=== PATIENT | female | born 1970 | race Caucasian/White ===

== ENCOUNTER → 2019-09-25 | Outpatient (CLI) | payer OTHER, SELFPAY ==
[2019-08-02 11:45] VITALS: BMI 25.9
--- NOTE | 2019-09-25 15:38 | BI_ITS ---
MAMMOGRAPHY - BILATERAL SCREENING REASON FOR EXAM: Female, 49 years old. Routine annual screening examination. PERTINENT HISTORY: Grandmother with breast cancer. Aunt with breast cancer. TECHNIQUE: Digital bilateral breast jose rafael (3D mammographic acquisition) in the CC and MLO projections. 2-D mediolateral oblique (MLO) and craniocaudad (CC) views of both breasts were obtained. CAD: Full Field Digital Mammography with Computer Added Detection was performed. COMPARISON: Comparison is made with prior outside examination of August 13, 2016. FINDINGS: Breast Composition: The breasts are heterogeneously dense, which may obscure small masses. There are no dominant masses or suspicious calcifications. No other significant abnormalities are identified. There has been no significant change since the prior study. BI/SCREEN MAMM (CAD) W/JOSE RAFAEL BILAT IMPRESSION: Stable bilateral screening mammogram. Yearly follow-up mammogram recommended. (A) ASSESSMENT CATEGORY: BIRADS Category 1: Negative. A letter regarding these results will be sent to the patient by the facility within 30 days. Approximately 10% of breast cancers are not detected by mammography. A normal mammogram should not delay biopsy of a clinically suspicious abnormality. [id number] Electronically Signed: Jacob Richter, at 8:30 EDT , Service support ,
== END | disposition home or self-care (01) ==
PROVIDERS: PCP Family Medicine; Referring Provider Family Medicine; Visit Provider Family Medicine
DX: Z12.31 Encounter for screening mammogram for malignant neoplasm of breast (principal)
CPT/HCPCS: 77063; 77067

== ENCOUNTER → 2019-10-03 | Outpatient (CLI) | payer OTHER, SELFPAY ==
[2019-08-02 11:45] VITALS: BMI 25.9
[2019-10-03 13:10] LABS: Absolute Lymphocyte Count 1.45 X10^3/uL (0.83-4.51); Absolute Neutrophil Count 2.5 X10^3/uL (2.0-7.7); Basophil# 0.08 X10^3/uL; Basophil% 1.7 % (0-1); Eosinophil# 0.29 X10^3/uL; Eosinophils% 6.1 % (0-5); Lymphocyte # 1.45 X10^3/ul (4.0); Lymphocyte % 30.7 % (19-41); Mean Corp Hgb Conc 32.5 g/dL (32-36); Mean Corpuscular Hgb 30.2 pg (27.0-32.0); Mean Platelet Vol. 9.5 fl (6.2-12.0); Monocyte# 0.42 X10^3/uL; Monocyte% 8.9 % (0-10); NRBC Flagged by Analyzer 0 % (0-5); Neutrophil # 2.47 X10^3/uL (2.7-7.7); Neutrophil % 52.4 % (47-70); Platelet Count 255 K/mm3 (150-450); RBC Distribution Width CV 12.7 % (11.6-14.6); White Blood Count 4.7 K/mm3 (4.4-11.0)
[2019-10-03 13:16] LABS: Thyroid Stim Hormone (TSH) 1.19 uIU/mL (0.358-3.74)
== END | disposition home or self-care (01) ==
LOC: LAB 11:01 → LABSPEC 13:41
PROVIDERS: PCP Family Medicine; Referring Provider Family Medicine; Visit Provider Family Medicine
DX: K21.9 Gastro-esophageal reflux disease without esophagitis (principal); R53.83 Other fatigue
CPT/HCPCS: 36415; 84443; 85025

== ENCOUNTER → 2020-01-25 | Outpatient (CLI) | payer OTHER, SELFPAY ==
[2019-08-02 11:45] VITALS: BMI 25.9
[2020-01-25 14:05] LABS: Erythrocyte Sedimentation Rate 2 mm/hr (0-30)
[2020-01-25 14:07] LABS: Hematocrit 39.7 % (37-47); Mean Corp Hgb Conc 32.7 g/dL (32-36); Mean Corpuscular Hgb 30.9 pg (27.0-32.0); Mean Corpuscular Volume 94.3 fL (81-99); Mean Platelet Vol. 9.3 fl (6.2-12.0); Platelet Count 296 K/mm3 (150-450); Red Blood Count 4.21 M/mm3 (4.2-5.4); White Blood Count 5.3 K/mm3 (4.4-11.0)
[2020-01-25 14:25] LABS: Vitamin B12 378 pg/mL (211-911)
[2020-01-25 15:15] LABS: ALB/GLOB Ratio 1.3 RATIO (0.9-2.4); AST(SGOT) 27 U/L (15-37); Alanine Aminotransfer ALT/SGPT 43 U/L (13-56); Albumin, Serum 3.7 g/dL (3.2-5.0); Alkaline Phosphatase 59 U/L (45-117); Anion Gap 4 (5-15); BUN 21 mg/dL (7-18); BUN/Creat Ratio 19.3 RATIO (10-20); CRP < 2.90 mg/L (0.0-3.0); Calcium,Total 8.3 mg/dL (8.5-10.1); Chloride 110 mmol/L (98-107); Creatinine, Serum 1.09 mg/dL (0.55-1.02); EST Glomerular Filtration Rate 56 mL/min (>60); Est Glom Filt Rate - Afr Amer 68 mL/min (>60); Globulin 2.8 g/dL (2.2-4.2); Glucose 90 mg/dL (74-106); Potassium 3.8 mmol/L (3.5-5.1); Protein, Total 6.5 g/dL (6.4-8.2); Sodium Level 141 mmol/L (136-145); T4 Free Direct 1.03 ng/dL (0.76-1.46); Thyroid Stim Hormone (TSH) 0.68 uIU/mL (0.358-3.74)
== END | disposition home or self-care (01) ==
LOC: LAB 13:29
PROVIDERS: PCP Family Medicine; Visit Provider Family Medicine
DX: R53.83 Other fatigue (principal)
CPT/HCPCS: 36415; 80053; 82607; 84439; 84443; 85027; 85652; 86140

== ENCOUNTER → 2020-03-27 | Outpatient (CLI) | payer OTHER, SELFPAY ==
[2019-08-02 11:45] VITALS: BMI 25.9
--- NOTE | 2020-03-27 09:46 | MRI_ITS ---
STUDY: MRI RIGHT KNEE REASON FOR EXAM: Medial right knee pain, swelling and popping for 3 years, no specific injury. TECHNIQUE: Standardized fat and water weighted pulse sequences were obtained in all 3 orthogonal planes. COMPARISON: None. FINDINGS: There is a predominantly horizontal tear of the free margin/inferior articular surface of the posterior horn of the medial meniscus (proton-density sagittal images 26-33) with a small parameniscal cyst (T2 sagittal images 15, 16). There is peripheral subluxation of the medial meniscus. There is arthrosis of the medial femorotibial compartment with small marginal osteophytes, chondral thinning (T2 sagittal image 18) and slight subchondral bone edema of the medial tibial plateau. Normal medial collateral ligamentous complex (MCL). Normal distal semimembranosus, gracilis and semitendinosus tendons. Normal lateral meniscus. Normal hyaline cartilage of the lateral femorotibial compartment. Normal lateral femoral condyle and tibial plateau. Normal proximal tibiofibular articulation. Normal lateral collateral (fibular) ligament. Normal popliteus tendon. Normal biceps femoris tendon. Normal anterior cruciate ligament (ACL). Normal posterior cruciate ligament (PCL). Normal congruent patellofemoral articulation. Normal hyaline cartilage of the patellofemoral compartment. Normal medial and lateral patellar retinaculum. Normal visualized quadriceps tendon. Normal patellar tendon. Normal Hoffa''s fat pad. There is a small joint effusion. The soft tissues are unremarkable. The otherwise visualized osseous structures are unremarkable. MRI/Lower Ext Joint Only (Routine) IMPRESSION: Medial meniscal tear. Arthrosis of the medial femorotibial compartment. Small joint effusion. Electronically Signed: Hector Parker MD at 10:51 EDT Tel , Service support ,
== END | disposition home or self-care (01) ==
PROVIDERS: PCP Family Medicine; Referring Provider Family Medicine; Visit Provider Family Medicine
DX: M25.561 Pain in right knee (principal)
CPT/HCPCS: 73721

== ENCOUNTER 2020-04-01 09:09 | Emergency (ER) | payer OTHER, SELFPAY ==
[2019-08-02 11:45] VITALS: BMI 25.9
[2020-04-01 09:10] VITALS: BP 130/57; PULSE 75; RESP 16; TEMP 36.3; O2SAT 97; BMI 25.0
--- NOTE | 2020-04-01 09:23 | ED.VIS.GEN ---
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 She notes some soreness to the buttock. She notes she recently was diagnosed with a meniscal tear of the right knee and has been having some stiffness but since the fall the knee seems to be moving better. She also notes that she has a Fowler's cyst. She did not strike her head. She denies any low back pain. She notes some tenderness near the SI joint in the right piriformis area which has been a known issue in the past. She has been ambulatory. Past Medical History - Allergies and Home Meds Allergies/Adverse Reactions: Allergies No Known Allergies Allergy (Verified 04/01/20 09:21) Primary Care Physician: [facility] [NON-[facility]FF] - As Needed Prior records reviewed: Yes Past Medical History: - - Uncontributory Surgical History: noncontributory Smoking Status: Never smoker Drugs: None Review of Systems General: Denies: Chills, Fever, Sweats Eyes: Denies: Visual changes - bilaterally, Diplopia ENT: Denies: Rhinorrhea, Sore throat Cardiovascular: Denies: Chest pain, Palpitations Respiratory: Denies: Dyspnea, Cough, Dyspnea on exertion Gastrointestinal: Denies: Abdominal pain, Nausea, Vomiting, Diarrhea, Melena, Hematochezia Genitourinary: Denies: Dysuria, Hematuria, Frequency Musculoskeletal: Reports: Back pain - See history of present illness, Extremity Pain Skin: Denies: Rash, Wounds Neurological: Denies: Headache, Weakness, Numbness Physical Exam Vital Signs/Narrative: Vital Signs Temp Pulse Resp BP Pulse Ox 04/01/20 09:10 97.3 F L 75 16 130/57 H 97 Inital Vital Signs reviewed: Yes General: Well nourished, Well developed, No Acute Distress Head: Normocephalic, Atraumatic Eyes: Perrl, EOMI ENT: Moist mucous membranes, No rhinorrhea Neck: Supple, Nontender Cardiovascular: Regular rate, Regular rhythm, No murmurs Respiratory: No distress, CTA bilaterally, Chest nontender Abdomen: Soft, Nontender, Nondistended, Normal bowel sounds Back: Nontender - No midline or lumbar paraspinal tenderness., Normal Inspection Extremities: Nontender, No edema, Tenderness - Mild tenderness over the hip joints able to bear weight with good range of motion, - - Right knee shows no effusion. No palpable Fowler's cyst. No swelling noted. Full range of motion. No calf tenderness. Skin: Normal color, No rash Neurological: Alert, Oriented x3, Cranial nerves II-XII grossly intact, Normal Strength, Normal Sensation Psychological: Normal affect, Normal Mood Diagnostic/Tx/Re-eval - Medical Decision Making I believe this most likely a mechanical fall with contusions. I do not believe that x-rays are indicated. Patient will be discharged follow-up as needed ED Disposition - Plan for ED Patient: Disposition: Home or Assisted Living Diagnosis: Fall, Contusion, hip Instructions: ED Mechanical Fall, ED CONTUSION Hip Referrals: [facility] [NON-STAFF] - As Needed
== END 2020-04-01 09:35 | disposition home or self-care (01) ==
LOC: ED 09:29
PROVIDERS: Emergency Provider Emergency Medicine; PCP Family Medicine
DX: S70.01XA Contusion of right hip, initial encounter (principal); W01.0XXA Fall on same level from slipping, tripping and stumbling without subsequent striking against object, initial encounter; Y93.01 Activity, walking, marching and hiking; Y92.234 Operating room of hospital as the place of occurrence of the external cause; Y99.0 Civilian activity done for income or pay
CPT/HCPCS: 99282

== ENCOUNTER → 2020-04-24 | Outpatient (CLI) | payer OTHER, SELFPAY ==
--- NOTE | 2020-04-24 16:03 | RAD_ITS ---
STUDY: X-RAY - RIGHT KNEE REASON FOR EXAM: Right knee pain for about 5 years, no specific injury. TECHNIQUE: 4 view(s) of the knee. COMPARISON: MRI images 03/27/2020. FINDINGS: Normal visualized distal femur. Normal visualized proximal tibia and fibula. Normal proximal tibiofibular articulation. There are small marginal osteophytes and moderately severe joint space narrowing of the medial femorotibial compartment. Normal lateral femorotibial compartment. There are small marginal osteophytes without joint space narrowing of the patellofemoral articulation. There is a joint effusion. RAD/Knee 4 or More Views IMPRESSION: Arthrosis of the medial femorotibial compartment. Joint effusion. Electronically Signed: Hector Parker MD at 15:30 EDT Tel , Service support ,
== END | disposition home or self-care (01) ==
LOC: MTRAD 16:03
PROVIDERS: PCP Family Medicine; Referring Provider Orthopaedic Surgery; Visit Provider Orthopaedic Surgery
DX: M25.561 Pain in right knee (principal)
CPT/HCPCS: 73564

== ENCOUNTER → 2020-05-08 | Outpatient (CLI) | payer OTHER, SELFPAY | END | disposition home or self-care (01) | LOC: LABSPEC 05-09 09:51 | PROVIDERS: PCP Family Medicine; Visit Provider Physician Assistant | DX: R69 Illness, unspecified (principal) ==

== ENCOUNTER → 2020-05-08 | Outpatient (CLI) | payer OTHER, SELFPAY ==
[2020-05-08 17:59] LABS: Pathologist Comment May follow
[2020-05-08 18:42] LABS: Synovial Fld Mononuclear WBC % 91.1 %; Synovial Fld Polynuclear WBC # 0.017 10^3/uL; Synovial Fld Polynuclear WBC % 8.9 %
[2020-05-08 19:05] LABS: AUTO B FLUID DILUENT BKGD CT WBC <0.1 RBC <0.01 (W<.1,R<.01)
[2020-05-08 19:06] LABS: Appearance /Synovial Fluid Sl hazy (CLEAR); CRYSTALS, BODY FLUID See PATH REV; Color / Synovial Fluid Yellow (Pale Yellow); Source / Synovial Fluid NG; Source- Body Fluid SYNOVIAL
[2020-05-08 20:51] LABS: Body Fluid QC Type(s) BF3Q,BF4Q; Lymph 4 %; Neutrophil 14 % (0-25)
[2020-05-08 20:53] LABS: Monocyte /Synovial Fluid 82 %
[2020-05-09 13:18] LABS: Pathologist Review Reviewed
[2020-05-12 16:35] LABS: GLUCOSE, SYNOVIAL FLUID 82 mg/dL (.)
[2020-05-12 16:39] LABS: PROTEIN, SYNOVIAL FLUID 3.1 g/dL (.)
== END | disposition home or self-care (01) ==
LOC: LABSPEC 17:55
PROVIDERS: PCP Family Medicine; Visit Provider Physician Assistant
DX: M25.461 Effusion, right knee (principal)
CPT/HCPCS: 82945; 84157; 87070; 87075; 87205; 89050; 89051; 89060

== ENCOUNTER 2020-07-01 16:00 | Outpatient (RCR) | payer OTHER, SELFPAY ==
--- NOTE | 2020-05-05 17:03 | HP.PTEVAL_ITS ---
Patient's Visit Information MELISSA AARON is a 50 year old F referred to Physical Therapy by Dr. Gely Lopez DO with a diagnosis of R knee OA, torn medial meniscus. Date of Evaluation: 05/05/20 Physical Therapist: Riky Green, PT, ATC - Visit Plan Frequency: 2-3x /Week Duration: 4-6 Weeks Plan: Begin with aquatic PT consisting of R LE stretching and strengthening, and core stab ex's. Then consider transition to land PT if tolerated at that time. - Subjective Has been dealing w/ the R knee pain for about 4 years but has gotten worse over the last year after injuring her low back w/ a ruptured disc. Has been going to chiropractor and massage therapy since about . Believes that her back pain isn't going away from walking weird with her knee pain. Knee pain was worse last week but better this week. States it feels very stiff most of the time. Back and knee pain causes her to struggle while sleeping. Working makes the pain and swelling worse, rest makes it better. Returns to to have R knee drained and receive an injection. Pt has had an MRI and xray which revealsdegenerative changes - Pain Low back Pain Intensity (Out of 10): 0 Pain Intensity Range: 0, 5 R knee Pain Intensity (Out of 10): 1 Pain Intensity Range: 0, 5 - Objective Neuro: B LE sensation is WNL to light touch. B patellar reflex= 2/3. Palpation: Pain throughout R knee. Mild swelling noted. Girth at joint line: L knee 33 cm, R knee 35 cm. MMT: R knee ext 3+/5 and painful. All other LE's 5/5 throughout. ROM: L knee 0-130, R knee 0-2-114 - Goals Goal 1:: Decrease R knee pain x 50% to aid with sleep Goal Time Frame: 4-6 Weeks Goal 2:: Increase R knee strength x 1 grade to aid with IADL's Goal Time Frame: 4-6 Weeks Goal 3:: Increase R knee ROM x 10-15 degrees to aid with restoring a more normalized gait pattern Goal Time Frame: 4-6 Weeks Goal 4:: I with HEP Goal Time Frame: 4-6 Weeks - Rehabilitation Potential Physical Therapy Diagnosis: R knee pain, weakness, and limited ROM secondary to R knee degenerative changes Rehabilitation Potential: Good - Anticipated Interventions Patient/Client Instruction: Educate patient on: Condition, Plan of Care For the Purpose of:: To improve self management Therapeutic Exercise to Include: Strength training, Endurance training, Balance training, Flexibilty training, In an aquatic setting, Active ROM, Dynamic Lumbar Stabilization For the Purpose of:: To decrease pain, To increase ROM, To improve muscle p erformance and motor function Thank you for the opportunity to evaluate your patient. For Medicare and Medicare HMO plans, please review the plan of care and approve it. It will need to be FAXED BACK to us at [phone] for Medicare purposes. For Medicare only, by signing this I certify the plan of care. Please let me know if there are questions or concerns regarding this plan of care. Physician Signature: Date:
--- NOTE | 2020-05-26 16:34 | HP.PTREVAL ---
Dr. Gely Lopez, DO, It has been my pleasure to treat MELISSA AARON over the last 9 visits for R knee OA, torn medial meniscus. Please see the progress note below for an update on the physical therapy plan of care! Subjective: I have made great progress so far Objective/Function: Pain in R knee is currently 0/10, but increased to 8/10 over the weekend. R kmee strength: flex= 5/5, ext= 4-/5. R knee ROM: 0-130. pt is showing great improvements toward Rx goals Plan Plan: Begin with aquatic PT consisting of R LE stretching and strengthening, and core stab ex's. Then consider transition to land PT if tolerated at that time. Goals Goal 1:: Decrease R knee pain x 50% to aid with sleep Goal Time Frame: 4-6 Weeks Goal Progress: Progressing Goal 2:: Increase R knee strength x 1 grade to aid with IADL's Goal Time Frame: 4-6 Weeks Goal Progress: Progressing Goal 3:: Increase R knee ROM x 10-15 degrees to aid with restoring a more normalized gait pattern Goal Time Frame: 4-6 Weeks Goal Progress: Goal Met Goal 4:: I with HEP Goal Time Frame: 4-6 Weeks Goal Progress: Progressing Anticipated Interventions Patient/Client Instruction: Educate patient on: Condition, Plan of Care For the Purpose of:: To improve self management Therapeutic Exercise to Include: Strength training, Endurance training, Balance training, Flexibilty training, In an aquatic setting, Active ROM, Dynamic Lumbar Stabilization For the Purpose of:: To decrease pain, To increase ROM, To improve muscle performance and motor function Please do not hesitate to contact me at [phone] by phone or if you have questions or concerns regarding this new plan of care! Sincerely, Riky Green, PT, ATC
--- NOTE | 2020-07-01 16:32 | HP.PTDCSUM ---
It has been my pleasure to treat MELISSA AARON referred by Dr. Gely Lopez DO, with the diagnosis of R knee OA, torn medial meniscus for a total of 19 visit(s). Discharge Date: Please see the following information for a summary of their discharge status. Subjective: I feel much better at this time Low back Pain Intensity (Out of 10): 0 R knee Pain Intensity (Out of 10): 0 % Improvement: 90 Objective/Function: R knee pain ranges from 0-4/10. R knee MMT: 5/5 throughout. R knee ROM: 0-128. I with HEP. Rx goals achieved Goal 1:: Decrease R knee pain x 50% to aid with sleep Goal Progress: Goal Met Goal 2:: Increase R knee strength x 1 grade to aid with IADL's Goal Progress: Goal Met Goal 3:: Increase R knee ROM x 10-15 degrees to aid with restoring a more normalized gait pattern Goal Progress: Goal Met Goal 4:: I with HEP Goal Progress: Goal Met Plan: Discharge If there are questions or concerns regarding this patient's physical therapy, please feel free to call me at [phone]. Thank you for the referral of this patient. Sincerely, Riky Green, PT, ATC
== END 2020-07-01 19:00 | disposition home or self-care (01) ==
LOC: PT 16:00
PROVIDERS: PCP Family Medicine; Referring Provider Orthopaedic Surgery; Visit Provider Orthopaedic Surgery
DX: M17.11 Unilateral primary osteoarthritis, right knee (principal); S83.241D Other tear of medial meniscus, current injury, right knee, subsequent encounter
CPT/HCPCS: 97113; 97161; 97164

== ENCOUNTER → 2020-10-16 15:02 | Outpatient (CLI) | payer OTHER, SELFPAY ==
--- NOTE | 2020-10-16 15:07 | BI_ITS ---
MAMMOGRAPHY - BILATERAL SCREENING REASON FOR EXAM: Female, 50 years old. Routine annual screening examination. PERTINENT HISTORY: Grandmother with breast cancer. Aunt with breast cancer. TECHNIQUE: Digital bilateral breast jose rafael (3D mammographic acquisition) in the CC and MLO projections. 2-D mediolateral oblique (MLO) and craniocaudad (CC) views of both breasts were obtained. CAD: Full Field Digital Mammography with Computer Added Detection was performed. COMPARISON: Comparison is made with prior examination dated 09/25/2019 FINDINGS: Breast Composition: The breasts are heterogeneously dense, which may obscure small masses. There are no dominant masses or suspicious calcifications. No other significant abnormalities are identified. There has been no significant change since the prior study. BI/SCRN MAMM (CAD)W/JOSE RAFAEL BILAT IMPRESSION: Stable bilateral screening mammogram. Yearly follow-up mammogram recommended. (A) ASSESSMENT CATEGORY: BIRADS Category 1: Negative. A letter regarding these results will be sent to the patient by the facility within 30 days. Approximately 10% of breast cancers are not detected by mammography. A normal mammogram should not delay biopsy of a clinically suspicious abnormality. [id number] Electronically Signed: Jacob Richter MD at 15:43 EDT , Service support ,
== END ==
PROVIDERS: PCP Family Medicine; Referring Provider Family Medicine; Visit Provider Family Medicine
DX: Z12.31 Encounter for screening mammogram for malignant neoplasm of breast (principal)
CPT/HCPCS: 77063; 77067

== ENCOUNTER → 2021-01-29 09:49 | Outpatient (CLI) | payer OTHER, SELFPAY ==
--- NOTE | 2021-01-29 09:51 | RAD_ITS ---
STUDY: X-RAY - RIGHT KNEE REASON FOR EXAM: Right knee pain extending into calf. TECHNIQUE: 4 view(s) of the knee. COMPARISON: Radiographs 04/24/2020. FINDINGS: Normal visualized distal femur. Normal visualized proximal tibia and fibula. Normal proximal tibiofibular articulation. There are marginal osteophytes and moderate to severe joint space narrowing of the medial femorotibial compartment similar to the prior study. Normal lateral femorotibial compartment. There are small marginal osteophytes without joint space narrowing of the patellofemoral articulation. There is a joint effusion. RAD/Knee 4 or More Views IMPRESSION: Arthrosis of the medial femorotibial compartment. Joint effusion. Electronically Signed: Hector Parker MD at 11:45 EDT Tel , Service support ,
== END ==
PROVIDERS: PCP Family Medicine; Referring Provider Orthopaedic Surgery; Visit Provider Orthopaedic Surgery
DX: M25.561 Pain in right knee (principal)
CPT/HCPCS: 73564

== ENCOUNTER → 2022-05-08 | Outpatient (CLI) | payer BC, SELFPAY ==
--- NOTE | 2022-05-08 10:40 | MRI_ITS ---
STUDY: MRI CERVICAL SPINE WITHOUT CONTRAST REASON FOR EXAM: Female, 52 years old patient with cervical radiculopathy TECHNIQUE: Standardized fat and water weighted pulse sequences were obtained in the sagittal and axial planes. COMPARISON: None FINDINGS: Normal foramen magnum and brainstem-cervical cord junction. Normal craniovertebral junction. Normal anterior atlantoaxial articulation. Normal odontoid process. Normal cervical lordosis. Normal vertebral bodies and posterior osseous elements. C2-3: Normal endplates. Normal disc height, signal and morphology. Normal central canal and intervertebral neural foramina. C3-4: Normal endplates. Normal disc height, signal and morphology. Normal central canal and intervertebral neural foramina. C4-5: Normal endplates. Normal disc height, signal and morphology. Normal central canal and intervertebral neural foramina. C5-6: Normal endplates. Normal disc height, signal and morphology. Normal central canal. There is mild narrowing of bilateral intervertebral neural foramina with uncovertebral and facet joint hypertrophy. C6-7: Normal endplates. Normal disc height, signal and morphology. Normal central canal. There is moderate narrowing of the left neural foraminal potential nerve impingement. The right neural foramen is mildly narrowed without evidence of nerve impingement. There is left-sided uncovertebral and facet joint arthropathy. C7-T1: Normal endplates. Normal disc height, signal and morphology. Normal central canal and intervertebral neural foramina. Normal cervical cord. Normal visualized soft tissue structures. MRI/Spine Cervical (Routine) IMPRESSION: Multilevel degenerative arthropathy of cervical spine with potential left-sided nerve impingement as described. Electronically Signed: Ofelia Brewer MD at 4:36 EST Reading Location ID and State: [facility] / [place] , Service support ,
== END | disposition home or self-care (01) ==
LOC: MRI 10:28
PROVIDERS: PCP Family Medicine; Referring Provider Chiropractor; Visit Provider Chiropractor
DX: M54.12 Radiculopathy, cervical region (principal); M54.2 Cervicalgia
CPT/HCPCS: 72141